=== PATIENT | female | born 1985 | race Caucasian/White ===

== ENCOUNTER 2017-09-15 17:30 | Emergency (ER) | payer MEDICARE, MEDICAID ==
--- NOTE | 2017-09-15 18:56 | UC ---
Respiratory Complaint HPI - HPI Summary HPI Summary: 31 y/o female presents to the urgent care c/o persistent productive cough,SOB and chills for the past 2 weeks. Pt reports symptoms started with nasal congestion and clear discharge. She has tried OTC medication w/o any relief. Now she has a cough with green sputum and mild SOB at times. Sore throat is 4/ 10 with swallowing, mild fever at home. Pt denies wheezing, chest pain, abdominal pain, N/V/D. Pt is a heavy everyday smoker. - History of Current Complaint Chief Complaint: UCRespiratory Stated Complaint: URI Time Seen by Provider: 09/15/17 18:36 Hx Obtained From: Patient Hx Last Menstrual Period: 08/25/17 ?: No Onset/Duration: Gradual Onset, Lasting Weeks - 2, Still Present, Worse Since - yesterday Timing: Intermittent Episodes Severity Initially: Mild Severity Currently: Moderate Pain Intensity: 4 Pain Scale Used: 0-10 Numeric Character: Cough: Productive, Sputum Description: - green Aggravating Factors: Recumbent Position Alleviating Factors: OTC Meds Associated Signs And Symptoms: Positive: Fever, Nasal Congestion. Negative: Pleuritic Chest Pain, Calf Swelling, Edema - Risk Factors Pulmonary Embolism Risk Factors: Negative Cardiac Risk Factors: Negative, Smoking Tuberculosis Risk Factors: Negative - Allergies/Home Medications Allergies/Adverse Reactions: Allergies Allergy/AdvReac Type Severity Reaction Status Date / Time antibiotic Allergy Rash Uncoded 09/15/17 17:46 PMH/Surg Hx/FS Hx/Imm Hx Previously Healthy: Yes Other Respiratory History: Emphysema - Surgical History Surgical History: None - Family History Known Family History: Positive: None - Pt denies FMHX - Social History Occupation: Employed Full-time Lives: With Family Alcohol Use: Rare Substance Use Type: None Smoking Status (MU): Heavy Every Day Tobacco Smoker Review of Systems Constitutional: Fever Skin: Negative Eyes: Negative ENT: Sore Throat, Nasal Discharge Respiratory: Shortness Of Breath, Cough Cardiovascular: Negative Gastrointestinal: Negative Genitourinary: Negative Motor: Negative Neurovascular: Negative Musculoskeletal: Negative Neurological: Negative Psychological: Negative Is Patient Immunocompromised?: No All Other Systems Reviewed And Are Negative: Yes Physical Exam Triage Information Reviewed: Yes Vital Signs: Initial Vital Signs Temp 98 F 09/15/17 17:46 Pulse 104 09/15/17 17:46 Resp 18 09/15/17 17:46 Pulse Ox 100 09/15/17 17:46 - Additional Comments Vital Signs Reviewed: Yes General: well developed, well nourished female sitting in the examining table w/ o any apparent distress. Pt with a strong smell of cigarette Eyes: Positive: Conjunctiva Clear - PERRLA, EOMI, fundi grossly normal ENT: Positive: Normal ENT inspection, Hearing grossly normal, Pharynx normal, Nasal congestion - edematous and erythematous nasal mucosa, Nasal drainage - yellowish drainage, TMs normal. Negative: Tonsillar swelling, Tonsillar exudate Neck: Positive: Supple, Nontender, No Lymphadenopathy Respiratory: no orthopnea or dyspnea. Able to speak in full sentences, no retractions or accessory muscle use, no tripod position, stridor, or head bobbing. breath sound present. B/L posterior upper lungs with scattered rhonchi , no wheezes or rales Cardiovascular: Positive: RRR, No Murmur, Pulses Normal, Brisk Capillary Refill Abdomen Description: Positive: Nontender, No Organomegaly, Soft. Negative: CVA Tenderness (R), CVA Tenderness (L) Bowel Sounds: Positive: Present Musculoskeletal Exam: Normal Musculoskeletal: Positive: Strength Intact, ROM Intact, No Edema Neurological Exam: Normal Psychological Exam: Normal Skin Exam: Normal UC Diagnostic Evaluation - Laboratory O2 Sat by Pulse Oximetry: 100 Respiratory Course/Dx - Course Course Of Treatment: 31 y/o female presents to the urgent care c/o persistent productive cough,SOB and chills for the past 2 weeks. Pt reports symptoms started with nasal congestion and clear discharge. She has tried OTC medication w/o any relief. Now she has a cough with green sputum and mild SOB at times. Sore throat is 4/10 with swallowing, mild fever at home. Pt denies wheezing, chest pain, abdominal pain, N/V/D.Pt is a heavy everyday smoker. She states she has Hx of emphysema. Hx obtained. Pt with scattered rhonchi on b/L upper posterior lungs on examiantion. Chest X-ray ordered, Impression: no actve cardiopulmonary disease observed. Pt with Acute bronchitis on examination. Pt Rx Z-laurie PO and Albuterol inhaler to alleviate bronchospasm and Tessalon tabs PO. Pt advised to increase fluid intake and eat well. Strongly advised to f/u with PCP for further mangement on her smoking. Pt educated on the risks of smoking. If not improvement or worsening of symptoms to return to the urgent care or f/u with PCP for further management. pt understood and agreed with plan of care - Differential Dx/Diagnosis Differential Diagnosis/HQI/PQRI: Asthma, Bronchitis, Influenza, Laryngitis, Lower Resp Infection, Sinusitis Provider Diagnoses: 1- Acute bronchitis. 2-Cough Discharge - Discharge Plan Condition: Stable Disposition: HOME Prescriptions: Albuterol HFA INHALER* [Ventolin HFA Inhaler*] 1 - 2 puff INH Q4H PRN #1 mdi PRN Reason: Cough Azithromyxin LAURIE (NF) [Z-Laurie (Zithromax) 250 mg tabs #6] 2 tab PO .TODAY, THEN 1 DAILY #6 tab Benzonatate CAP* [Tessalon 100 MG CAP*] 100 mg PO TID PRN #15 cap PRN Reason: Cough Patient Education Materials: Acute Bronchitis (ED) Referrals: [facility] [Outside] - 1 Week Additional Instructions: 1-Please take full course of antibiotic to avoid resistance. 2-Take Tessalon PO tabs as directed and use the albuterol inhaler to alleviate sough. Increase fluid intake, rest and eat well. 3- If symptoms do not improve or worsen or your develop SOB with fever and severe wheezing please go immediately to the ER further evaluation and treatment. 4- F/u with your PCP in 2-3 days for further management on your Emphysema and smoking cessation.
--- NOTE | 2017-09-15 19:31 | RAD ---
Indication: Cough. 2 views of the chest including dual energy PA views demonstrate no mediastinal shift. Heart is of normal size and configuration. Lung hua demonstrate no pleural fluid, pneumonia or pneumothorax is noted. IMPRESSION: No active cardiopulmonary disease is noted.
[2017-09-15 20:02] VITALS: BP 105/54
== END 2017-09-15 20:02 | disposition home or self-care (01) ==
LOC: UCEAST 17:30
DX: J20.9 Acute bronchitis, unspecified (principal); R05 Cough; R50.9 Fever, unspecified; J43.9 Emphysema, unspecified; Z88.1 Allergy status to other antibiotic agents; F17.210 Nicotine dependence, cigarettes, uncomplicated
CPT/HCPCS: 71020; 99202; G0463

== ENCOUNTER 2018-08-22 09:51 | Emergency (ER) | payer MEDICARE, MEDICAID ==
--- NOTE | 2018-08-22 10:04 | ED ---
GI/ HPI - HPI Summary HPI Summary: Patient is a 32-year-old female who presents emergency department for dysuria that started yesterday. She notes lower abdominal pain. Patient denies chance and . She notes occasional hematuria with wiping. Denies vaginal discharge or irregular bleeding. Denies fever, chills, vomiting, flank pain. Symptoms are mild in severity. Urinating makes symptoms worse. Nothing makes symptoms better. Pt. states she has not been sexual active in 2 years and denies change of . - History of Current Complaint Chief Complaint: EDUrogenitalProblems Time Seen by Provider: 08/22/18 09:59 Stated Complaint: POSSIBLE UTI Hx Obtained From: Patient Hx Last Menstrual Period: 08/25/17 Pain Intensity: 5 - Allergy/Home Medications Allergies/Adverse Reactions: Allergies Allergy/AdvReac Type Severity Reaction Status Date / Time antibiotic Allergy Rash Uncoded 09/15/17 17:46 PMH/Surg Hx/FS Hx/Imm Hx Previously Healthy: Yes Infectious Disease History: No Infectious Disease History: Denies: Hx Clostridium Difficile, Hx Hepatitis, Hx Human Immunodeficiency Virus (HIV), Hx of Known/Suspected MRSA, Hx Shingles, Hx Tuberculosis, Hx Known/ Suspected VRE, Hx Known/Suspected VRSA, History Other Infectious Disease, Traveled Outside the [place] in Last 30 Days - Family History Known Family History: Positive: None - Pt denies FMHX, Non-Contributory - Social History Occupation: Disabled Lives: With Family Alcohol Use: Rare Substance Use Type: Reports: None Hx Tobacco Use: Yes Smoking Status (MU): Heavy Every Day Tobacco Smoker Review of Systems Constitutional: Negative Negative: Fever, Chills Gastrointestinal: Negative Negative: Abdominal Pain, Vomiting, Nausea Positive: dysuria, hematuria. Negative: discharge, flank pain All Other Systems Reviewed And Are Negative: Yes Physical Exam Triage Information Reviewed: Yes Vital Signs On Initial Exam: Initial Vitals Temp Pulse Resp BP Pulse Ox 98.7 F 89 15 127/71 98 08/22/18 09:54 08/22/18 09:54 08/22/18 09:54 08/22/18 09:54 08/22/18 09:54 Vital Signs Reviewed: Yes Appearance: Positive: Well-Appearing - Pt. sitting on bed in NAD. Mother present. Skin: Positive: Warm, Dry Head/Face: Positive: Normal Head/Face Inspection Eyes: Positive: Normal, EOMI Neck: Positive: Supple Respiratory/Lung Sounds: Positive: Clear to Auscultation, Breath Sounds Present Cardiovascular: Positive: Normal, RRR Abdomen Description: Positive: Other: - Mild suprapubic pain. No rebound tenderness or guarding. Mild bilateral CVA tendernes. Neurological: Positive: Normal, CN Intact II-III Psychiatric: Positive: Affect/Mood Appropriate Diagnostics - Vital Signs Vital Signs Temp Pulse Resp BP Pulse Ox 08/22/18 09:54 98.7 F 89 15 127/71 98 - Laboratory Lab Statement: Any lab studies that have been ordered have been reviewed, and results considered in the medical decision making process. GIGU Course/Dx - Course Course Of Treatment: Pt. presenting for dysuria. She is afebrile and well appearing. She does have minimal bilateral CVA tenderness. U/A shows shows small RBCs and leukocytes, culture sent. Will treat based on sxs with bactrim. To increase fluids. Tylenol or Motrin for pain as directed. Close f.u with PCP and return to ER for increased pain, fever, vomiting. Pt. understands and agrees with plan. - Diagnoses Differential Diagnoses - Female: Pyelonephritis, STD, Urinary Tract Infection, Ureteral Calculi Provider Diagnoses: UTI (urinary tract infection) Discharge - Sign-Out/Discharge Documenting (check all that apply): Patient Departure - Discharge Plan Condition: Good Disposition: HOME Prescriptions: Sulfamethox/Trimethoprim DS* [Bactrim DS 800/160 TAB*] 1 tab PO BID #20 tab Patient Education Materials: Urinary Tract Infection in Women (ED) Referrals: Neville NAZARIO,Rosalio Romano [Primary Care Provider] - Additional Instructions: Schedule a follow up appointment with your PCP Take antibiotic as directed Increase fluids Tylenol or Motrin for pain as directed Return to ER for fever, vomiting, increased pain - Billing Disposition and Condition Condition: GOOD Disposition: Home
[2018-08-22 11:14] LABS: Urine Appearance Cloudy; Urine Blood 1+ (Negative); Urine Color Straw; Urine Ketones Negative (Negative); Urine Protein Negative (Negative); Urine Red Blood Cell Trace(0-2/hpf) (Absent); Urine Specific Gravity 1.001 (1.010-1.030); Urine Urobilinogen Negative (Negative); Urine White Blood Cell Trace(0-5/hpf) (Absent)
[2018-08-22 12:00] VITALS: BP 116/62
== END 2018-08-22 11:59 | disposition home or self-care (01) ==
LOC: ED 09:51
DX: N39.0 Urinary tract infection, site not specified (principal); R31.9 Hematuria, unspecified; Z88.1 Allergy status to other antibiotic agents; F17.200 Nicotine dependence, unspecified, uncomplicated
CPT/HCPCS: 81003; 81015; 87086; 99282